=== PATIENT | female | born 1940 | race Caucasian/White ===

== ENCOUNTER → 2018-02-11 | Outpatient (CLI) | payer MEDICARE | END | disposition home or self-care (01) | LOC: RAD 15:17 | PROVIDERS: ATTEND Orthopaedic Surgery | DX: S83.92XA Sprain of unspecified site of left knee, initial encounter (principal); M25.462 Effusion, left knee; M71.22 Synovial cyst of popliteal space [Baker], left knee; M17.12 Unilateral primary osteoarthritis, left knee; X58.XXXA Exposure to other specified factors, initial encounter; Y93.89 Activity, other specified; Y92.89 Other specified places as the place of occurrence of the external cause; Y99.8 Other external cause status ==

== ENCOUNTER → 2018-03-20 | Outpatient (CLI) | payer MEDICARE ==
[~2018-03-20] MED LIST: AMLO2.5T5 PO; ASCO-96 PO; CALC1TAB PO; HYDR25CA94 PO; LEVO25TA4 PO; MULT-642 PO; Super B Complex PO; TRIA1TAB3 PO; Vitamin D3 PO
== END | disposition home or self-care (01) ==
LOC: STAR 12:24
PROVIDERS: ATTEND Orthopaedic Surgery
DX: Z01.818 Encounter for other preprocedural examination (principal); M25.562 Pain in left knee
CPT/HCPCS: 87081

== ENCOUNTER 2018-03-26 05:22 | Observation (INO) | payer MEDICARE ==
[~2018-03-26] VITALS: Ht 162.6 cm; Wt 66.2 kg
[2018-03-26] MEDS ORDERED: LACTATED RINGERS 1,000 ML IV SCH (06:06)
[2018-03-26 06:08] VITALS: BP 139/84
[2018-03-26] MEDS ORDERED: TRANEXAMIC ACID 100 MG/ML, 10ML ONE (06:14)
[2018-03-26] MEDS ORDERED: GLYCOPYRROLATE 0.2MG/1ML, 5ML ONE (06:22)
[2018-03-26] MEDS ORDERED: PROPOFOL 10 MG/ML, 20ML ONE (06:22)
[2018-03-26] MEDS ORDERED: ROCURONIUM 10MG/ML,5ML ONE (06:22)
[2018-03-26] MEDS ORDERED: SUCCINYLCHOLINE 20 MG/ML, 10ML ONE (06:22)
[2018-03-26] MEDS ORDERED: CEFAZOLIN 1,000 MG ONE ×2 (06:22)
[2018-03-26] MEDS ORDERED: ROPIvacaine/PF 0.5%, 30 ML ONE (06:22)
[2018-03-26] MEDS ORDERED: ONDANSETRON 2MG/ML, 2ML ONE (06:22)
[2018-03-26] MEDS ORDERED: DEXAMETHASONE 4 MG/ML, 1ML ONE (06:22)
[2018-03-26] MEDS ORDERED: NEOSTIGMINE 1 MG/ML, 10ML ONE (06:22)
[2018-03-26] MEDS ORDERED: FENTANYL PF 250 MCG/5ML ONE (06:25)
[2018-03-26] MEDS ORDERED: SCOPOLAMINE PATCH, 1.5MG PATCH.TD72 TD ONE (06:30)
[2018-03-26] MEDS: D5%-0.45% NACL 1,000 ML IV SCH ×2 (06:49→16:49)
[2018-03-26] MEDS ORDERED: MAGNESIUM HYDROXIDE 8%, 30ML UDC PO PRN (07:00)
[2018-03-26] MEDS ORDERED: HYDROcodone/APAP 5/325 TABLET PO PRN (07:00)
[2018-03-26] MEDS: CEFAZOLIN PMX 1GM/50ML 50 ML IVPB SCH ×2 (07:00→15:51)
[2018-03-26] MEDS ORDERED: ACETAMINOPHEN 650 MG/20.3 ML UDC PO PRN (07:00)
[2018-03-26] MEDS: HYDROcodone/APAP 5/325 TABLET PO SCH ×5 (07:00→22:03)
[2018-03-26] MEDS ORDERED: DIPHENHYDRAMINE 50 MG CAPSULE PO PRN (07:00)
[2018-03-26] MEDS ORDERED: OXYcodone IR 5MG TABLET PO PRN (07:00)
[2018-03-26] MEDS ORDERED: OXYcodone 5 MG/5 ML ORAL.SOL UDC PO PRN (07:30)
[2018-03-26] MEDS ORDERED: METOPROLOL 1 MG/ML, 5ML IV PRN (07:30)
[2018-03-26] MEDS ORDERED: ACETAMINOPHEN 325 MG TABLET PO PRN (07:30)
[2018-03-26] MEDS ORDERED: LABETALOL 5MG/ML, 20ML IV PRN (07:30)
[2018-03-26] MEDS ORDERED: hydrALAzine 20 MG/ML, 1ML IV PRN (07:30)
[2018-03-26] MEDS ORDERED: HYDROmorphone 2 MG/ML, 1ML IVPush PRN (07:30)
[2018-03-26] MEDS ORDERED: ALBUTEROL SULFATE 2.5 MG/3 ML NPPB PRN (07:30)
[2018-03-26] MEDS ORDERED: PROMETHAZINE 25 MG/ML, 1ML IV PRN (07:30)
[2018-03-26] MEDS ORDERED: EPHEDRINE 50 MG/ML, 1ML IVPush PRN (07:30)
[2018-03-26] MEDS ORDERED: ONDANSETRON 2MG/ML, 2ML IV PRN (07:30)
[2018-03-26] MEDS ORDERED: OXYcodone 5 MG/5 ML ORAL.SOL UDC ONE (08:47)
[2018-03-26] MEDS ORDERED: FENTANYL PF 100 MCG/2ML ONE (08:51)
[2018-03-26] MEDS: FENTANYL PF 100 MCG/2ML IV PRN ×3 (08:52→09:05)
[2018-03-26] MEDS ORDERED: LEVOTHYROXINE 25 MCG TABLET PO SCH (09:00)
[2018-03-26] MEDS: TEMPLATE NON-FORMULARY MED. (Amlodipine Besylate** 2.5 MG) PO SCH (09:00)
[2018-03-26] MEDS: HYDROXYZINE PAMOATE 25MG CAP PO SCH (09:00)
[2018-03-26] MEDS ORDERED: ONDA4TAB7 PO (11:07)
[2018-03-26] MEDS ORDERED: AMLODIPINE 2.5 MG TABLET ONE (11:34)
[2018-03-26] MEDS: TRIAMTERENE-HCTZ 37.5/25 MG TABLET PO SCH (11:36)
[2018-03-26] MEDS: DOCUSATE 100 MG CAPSULE PO SCH ×2 (11:36→21:13)
[2018-03-26] MEDS ORDERED: CEFAZOLIN PMX 1GM/50ML 50 ML IVPB ONE (15:40)
[2018-03-26 16:11] VITALS: BP 132/78
[2018-03-26 19:46] VITALS: BP 121/75
[2018-03-26] MEDS: ASPIRIN 325 MG TABLET EC PO SCH (21:13)
[2018-03-26 23:54] VITALS: BP 116/77
[2018-03-27 01:50] VITALS: BP 122/74
[2018-03-27] MEDS: HYDROcodone/APAP 5/325 TABLET PO SCH ×5 (02:00→20:53)
[2018-03-27] MEDS: D5%-0.45% NACL 1,000 ML IV SCH ×3 (02:01→22:49)
[2018-03-27] MEDS: ONDANSETRON 4 MG TABLET PO PRN ×2 (05:23→15:33)
[2018-03-27] MEDS: LEVOTHYROXINE 25 MCG TABLET PO SCH (05:33)
[2018-03-27] MEDS: ASPIRIN 325 MG TABLET EC PO SCH ×2 (06:30→20:53)
[2018-03-27 08:16] VITALS: BP 108/55
[2018-03-27] MEDS: DOCUSATE 100 MG CAPSULE PO SCH ×2 (08:22→20:53)
[2018-03-27] MEDS: HYDROXYZINE PAMOATE 25MG CAP PO SCH (08:22)
[2018-03-27] MEDS: TRIAMTERENE-HCTZ 37.5/25 MG TABLET PO SCH (08:22)
[2018-03-27] MEDS: TEMPLATE NON-FORMULARY MED. (Amlodipine Besylate** 2.5 MG) PO SCH (08:23)
[2018-03-27 14:13] VITALS: BP 113/68
[2018-03-27 19:45] VITALS: BP 130/73
[2018-03-28 00:47] VITALS: BP 135/74
[2018-03-28] MEDS: HYDROcodone/APAP 5/325 TABLET PO SCH ×4 (01:11→13:00)
[2018-03-28] MEDS: ASPIRIN 325 MG TABLET EC PO SCH ×2 (05:21→17:15)
[2018-03-28] MEDS: LEVOTHYROXINE 25 MCG TABLET PO SCH (05:21)
[2018-03-28 08:13] VITALS: BP 128/74
[2018-03-28] MEDS: D5%-0.45% NACL 1,000 ML IV SCH ×3 (08:49→20:07)
[2018-03-28] MEDS: TEMPLATE NON-FORMULARY MED. (Amlodipine Besylate** 2.5 MG) PO SCH (09:00)
[2018-03-28] MEDS: HYDROXYZINE PAMOATE 25MG CAP PO SCH (09:15)
[2018-03-28] MEDS: TRIAMTERENE-HCTZ 37.5/25 MG TABLET PO SCH (09:15)
[2018-03-28] MEDS: DOCUSATE 100 MG CAPSULE PO SCH ×2 (09:16→20:36)
[2018-03-28] MEDS ORDERED: BISACODYL 10 MG SUPP PR PRN (14:30)
[2018-03-28 14:41] VITALS: BP 148/79
[2018-03-28] MEDS: IBUPROFEN 200 MG TABLET PO PRN (17:15)
[2018-03-28 19:59] VITALS: BP 158/80
[2018-03-29] MEDS: IBUPROFEN 200 MG TABLET PO PRN ×2 (00:56→08:54)
[2018-03-29 01:40] VITALS: BP 164/91
[2018-03-29] MEDS: LEVOTHYROXINE 25 MCG TABLET PO SCH (05:41)
[2018-03-29] MEDS: ASPIRIN 325 MG TABLET EC PO SCH (05:41)
[2018-03-29 07:01] VITALS: BP 133/85
[2018-03-29] MEDS: DOCUSATE 100 MG CAPSULE PO SCH (08:54)
[2018-03-29] MEDS: TRIAMTERENE-HCTZ 37.5/25 MG TABLET PO SCH (08:54)
[2018-03-29] MEDS: HYDROXYZINE PAMOATE 25MG CAP PO SCH (08:54)
[2018-03-29] MEDS: TEMPLATE NON-FORMULARY MED. (Amlodipine Besylate** 2.5 MG) PO SCH (08:56)
[2018-03-29] MEDS: D5%-0.45% NACL 1,000 ML IV SCH (12:27)
== END 2018-03-29 13:15 | disposition home or self-care (01) ==
LOC: OUT 05:22 → ORIP 06:49 → 4NOR 09:54 → DCLOUNGE 03-29 13:05
PROVIDERS: ADMIT Orthopaedic Surgery; ATTEND Orthopaedic Surgery
DX: M17.12 Unilateral primary osteoarthritis, left knee (principal); M11.20 Other chondrocalcinosis, unspecified site; K59.00 Constipation, unspecified; M21.00 Valgus deformity, not elsewhere classified, unspecified site
CPT/HCPCS: 27447; 73560; 96365; 97110; 97116; 97162; 97166; 97530; 97535; C1713; C1776; G0378; G8978; G8979; G8980; J0690; J1100; J2405; J2704; J2710; J2795; J3010; J3490; J7120; Q0162; J0330